=== PATIENT | female | born 1930 | race Caucasian/White ===

== ENCOUNTER 2017-03-11 07:18 | Day surgery (SDC) | payer OTHER, MEDICARE ==
[2017-03-05 17:15] VITALS: BMI 31.8
[2017-03-11] MEDS ORDERED: PROPOFOL 20 ML ONE (07:34)
[2017-03-11] MEDS ORDERED: LIDOCAINE HCL/PF 2% SDV 5ML VIAL ONE (07:42)
[2017-03-11] MEDS ORDERED: METOPROLOL TARTRATE 5 MG/5 ML VIAL ONE (08:46)
[2017-03-11 09:12] VITALS: TEMP 97.7
[2017-03-11 09:32] VITALS: BP 122/65; PULSE 76
--- NOTE | 2017-03-13 15:30 | PATH ---
Surgical Pathology Report Patient Name: BARRY SANTIAGO [facility]. Rec. #: [id number] /Age/Gender: 1930 (Age: 86) / F Account: [id number] Location: Taken: 03/11/2017 Received: 03/11/2017 Reported: 03/13/2017 Physicians: Corey Velazquez M.D. Specimen(s) Received BX ANTRUM Clinical History GERD Gastritis Final Diagnosis ANTRUM, BIOPSY: MILD CHRONIC GASTRITIS. IMMUNOSTAIN IS NEGATIVE FOR H. PYLORI ORGANISMS. Electronically Signed Mariah Estevez M.D. Gross Description Received in formalin, labeled "antrum" are 2 ruiz, irregular portions of soft tissue measuring 0.3 and 0.5 cm. in greatest dimension. The specimens are submitted in toto in one cassette. 03/12/201703/12/2017
== END 2017-03-11 09:39 | disposition home or self-care (01) ==
LOC: FASU-ENDO 07:18
PROVIDERS: ATTEND Internal Medicine Gastroenterology
PROC: 0DB68ZX Excision of Stomach, Via Natural or Artificial Opening Endoscopic, Diagnostic (ICD-10-PCS; principal; 2017-03-11 08:43)
DX: K29.50 Unspecified chronic gastritis without bleeding (principal); K44.9 Diaphragmatic hernia without obstruction or gangrene
CPT/HCPCS: 88305-TC; 88342-TC